=== PATIENT | male | born 1945 | race Caucasian/White ===

== ENCOUNTER → 2020-09-10 | Outpatient (CLI) | payer MEDICARE | LOC: M LABSMTC 13:17 | PROVIDERS: ATTEND Anesthesiology | DX: Z01.812 Encounter for preprocedural laboratory examination (principal); Z20.822 Contact with and (suspected) exposure to COVID-19 ==

== ENCOUNTER 2020-09-15 10:06 | Day surgery (SDC) | payer MEDICARE ==
[~2020-09-15] VITALS: Ht 177.8 cm; Wt 87.9 kg
[~2020-09-15 10:06] MED LIST: LR 1,000 ML IV ONE
[2020-09-15] MEDS ORDERED: ROCURONIUM BROMIDE 50 MG/5 ML VIAL As Ordered ONE (11:12)
[2020-09-15] MEDS ORDERED: dexameTHASONE 4 MG/ML 1ML VIAL (J1100 PER 1MG) As Ordered ONE (11:12)
[2020-09-15] MEDS ORDERED: MIDAZOLAM INJ 2MG/2ML VIAL (J2250 PER 1MG) As Ordered ONE (11:12)
[2020-09-15] MEDS ORDERED: LIDOCAINE 2% 100MG/5ML SDV (FOR ANES.) As Ordered ONE (11:12)
[2020-09-15] MEDS ORDERED: propofoL 200 MG/20 ML VIAL As Ordered ONE (11:12)
[2020-09-15] MEDS ORDERED: ONDANSETRON 4MG/2ML VIAL As Ordered ONE (11:12)
[2020-09-15] MEDS ORDERED: fentaNYL 100 MCG/2 ML INJECTION (J3010) As Ordered ONE (11:13)
[2020-09-15] MEDS ORDERED: ACETAMINOPHEN 1000MG 100ML IV BTL (OFIRMEV) (J0131 PER 10MG) As Ordered ONE (11:14)
[2020-09-15] MEDS ORDERED: METHYLENE BLUE 0.5% (5MG/ML) 10 ML AMP (PROVAYBLUE) As Ordered ONE (11:49)
[2020-09-15] MEDS ORDERED: EPINEPHrine 1MG/ML INJ 30ML MD-VIAL As Ordered ONE (11:49)
[2020-09-15] MEDS ORDERED: LIDOCAINE W/EPINEPHRINE 1% 20ML VIAL As Ordered ONE (11:49)
[2020-09-15] MEDS ORDERED: BACITRACIN OINTMENT 30GM TUBE As Ordered ONE (11:49)
[2020-09-15] MEDS ORDERED: SUGAMMADEX SODIUM 500 MG/5 ML VIAL (BRIDION) As Ordered ONE (12:31)
[2020-09-15] MEDS ORDERED: ONDANSETRON 4MG/2ML VIAL IV PRN (14:15)
[2020-09-15] MEDS ORDERED: LR 1,000 ML IV SCH ×2 (14:15→14:20)
[2020-09-15] MEDS ORDERED: fentaNYL 100 MCG/2 ML INJECTION (J3010) IV PRN (14:15)
[2020-09-15] MEDS: oxyCODONE 5MG TAB PO PRN ×2 (14:20→14:56)
[2020-09-15] MEDS ORDERED: ACETAMINOPH W/CODEINE #3 TAB UD PO PRN (14:20)
--- NOTE | 2020-09-15 14:43 | RO ---
OPERATIVE NOTE DATE OF OPERATION: 09/15/2020 PREOPERATIVE DIAGNOSIS: Cancer of the lower lip. POSTOPERATIVE DIAGNOSIS: Cancer of the lower lip. OPERATIVE PROCEDURE: Excision of cancer of lower lip with flap reconstruction. SURGEON: Kenrick Grider MD AUCTIONEER ART: Tod Nguyen PA-C ANESTHESIA: General. 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 It measured 2 cm wide. I measured the lower lip distance, which was 9 cm. After excision, it was 3 cm of defect, so, I did a rotational 2-stage flap. This is the first stage. PROCEDURE IN DETAIL: Under general anesthesia, with the patient intubated, the patient was draped in the usual manner. The tumor was marked out and the margins. I infiltrated with lidocaine and epinephrine. I divided skin and subcutaneous tissues. I cauterized the labial vessels and then removed the specimen. I marked it. I sent it for frozen section. Frozen section margins were negative for tumor. Once this was done, then I designed an upper Idris flap based laterally. The flap diameter was 1.5 cm. I made it 2 cm long. This matched the excision margin. So, I divided around the flap leaving the upper lip vessels laterally intact. I then rotated the flap into position. I started first by suturing the mucosa edges together, both on the upper and lower lip. Then, I sutured the muscular layer together of the flap to the lower lip and the upper lip to itself. This was done using interrupted 4-0 Vicryl and 3-0 chromic. Once this was done, then I identified the vermilion border superiorly and then sutured the vermilion border margins together and the incision was closed. I did a similar matching of the vermilion border on the lower lip and then sutured the skin together from superior to inferior. Once that was done, then I started by suturing the mucosa of the medial border of the flap to the lower lip. Next, I sutured the muscular layer of the lower lip together. I identified the vermilion border of the medial part of the lower lip and the vermilion border of the flap and I sutured those together. I closed the skin of the lower lip. Once this was done, everything looked good. I did put a suture in the mucosa superiorly. There was no bleeding then. There was approximately 30 mL of estimated blood loss. The patient tolerated the procedure well. I put Bacitracin ointment on the wound. The patient was then woken up, extubated, and transferred to the recovery room in excellent condition. This was the first stage of a 2-stage rotational flap. ADDENDUM: [employer] during the procedure was Tod Nguyen who helped by retraction and assisting in the dissection. Addendum dictated: JAMZÍN 09/15/2020 1353 Addendum transcribed: [email or web address] 09/15/2020 1425 [email or web address]
[2020-09-15 15:37] VITALS: BP 160/80
== END 2020-09-15 15:38 | disposition home or self-care (01) ==
LOC: M SDC 10:06
PROVIDERS: ATTEND Otolaryngology
DX: C44.02 Squamous cell carcinoma of skin of lip (principal); D18.01 Hemangioma of skin and subcutaneous tissue; F17.218 Nicotine dependence, cigarettes, with other nicotine-induced disorders
CPT/HCPCS: 11642; 40527; 88305; 88331; 88332; J0131; J1100; J2250; J2405; J3010; Q9968

== ENCOUNTER → 2020-09-28 | Outpatient (CLI) | payer MEDICARE ==
--- NOTE | 2020-09-28 12:08 | REP ---
INDICATION: NICOTINE DEPEND. COMPARISON: None. TECHNIQUE: Axial noncontrast images from the thoracic inlet to the upper abdomen using low-dose lung screening technique (LDCT). As per the protocol only lung window images were sent to the read station for interpretation FINDINGS: In the apicoposterior segment of the left upper lobe there is a vague 7 mm sized ground-glass nodule. There is mild cylindrical bronchiectasis. Grossly the mediastinum and pulmonary lou are within normal limits. Grossly, the imaged upper abdomen and imaged osseous structures are within normal limits. IMPRESSION: 7 millimeters sized ground-glass nodule in the left lung as described above. According to the revised Fleischner society criteria this represents a lung rads category 2 lesion for which a [address] follow-up is recommended. <Electronically signed by Reinaldo Lal > 09/28/20 [id number]
== END ==
LOC: M RAD 10:38
PROVIDERS: ATTEND Family Medicine
DX: F17.210 Nicotine dependence, cigarettes, uncomplicated (principal); Z12.2 Encounter for screening for malignant neoplasm of respiratory organs

== ENCOUNTER → 2020-10-02 | Outpatient (CLI) | payer MEDICARE | LOC: M LABSMTC 10:40 | PROVIDERS: ATTEND Anesthesiology | DX: Z20.828 Contact with and (suspected) exposure to other viral communicable diseases (principal); Z11.59 Encounter for screening for other viral diseases ==

== ENCOUNTER 2020-10-07 08:11 | Day surgery (SDC) | payer MEDICARE ==
[~2020-10-07] VITALS: Ht 177.8 cm; Wt 86.4 kg
[2020-10-07] MEDS ORDERED: MIDAZOLAM INJ 2MG/2ML VIAL (J2250 PER 1MG) As Ordered ONE (09:14)
[2020-10-07] MEDS ORDERED: fentaNYL 100 MCG/2 ML INJECTION (J3010) As Ordered ONE (09:14)
[2020-10-07] MEDS ORDERED: LIDOCAINE 2% JELLY 5ML TUBE As Ordered ONE (09:14)
[2020-10-07] MEDS ORDERED: ONDANSETRON 4MG/2ML VIAL As Ordered ONE (09:14)
[2020-10-07] MEDS ORDERED: SUGAMMADEX SODIUM 500 MG/5 ML VIAL (BRIDION) As Ordered ONE (09:14)
[2020-10-07] MEDS ORDERED: ROCURONIUM BROMIDE 50 MG/5 ML VIAL As Ordered ONE (09:14)
[2020-10-07] MEDS ORDERED: propofoL 200 MG/20 ML VIAL As Ordered ONE ×2 (09:14→09:33)
[2020-10-07] MEDS ORDERED: dexameTHASONE 4 MG/ML 1ML VIAL (J1100 PER 1MG) As Ordered ONE (09:14)
[2020-10-07] MEDS ORDERED: KETOROLAC 60MG 2ML VIAL As Ordered ONE (09:14)
[2020-10-07] MEDS ORDERED: LIDOCAINE 2% 100MG/5ML SDV (FOR ANES.) As Ordered ONE (09:20)
[2020-10-07] MEDS ORDERED: OXYMETAZOLINE 0.05% NASAL SPRAY (AFRIN) As Ordered ONE (09:27)
[2020-10-07] MEDS ORDERED: EPINEPHrine 1MG/ML INJ 30ML MD-VIAL As Ordered ONE (09:37)
[2020-10-07] MEDS ORDERED: METHYLENE BLUE 0.5% (5MG/ML) 10 ML AMP (PROVAYBLUE) As Ordered ONE (09:37)
[2020-10-07] MEDS ORDERED: BACITRACIN OINTMENT 30GM TUBE As Ordered ONE (09:37)
[2020-10-07] MEDS ORDERED: LIDOCAINE W/EPINEPHRINE 1% 20ML VIAL As Ordered ONE (09:37)
[2020-10-07] MEDS ORDERED: fentaNYL 100 MCG/2 ML INJECTION (J3010) IV PRN (11:05)
[2020-10-07] MEDS ORDERED: LR 1,000 ML IV SCH (11:05)
[2020-10-07] MEDS ORDERED: ONDANSETRON 4MG/2ML VIAL IV PRN (11:05)
[2020-10-07] MEDS ORDERED: METOCLOPRAMIDE INJ 10MG/2ML VIAL (J2765 PER 1) IV PRN (11:05)
[2020-10-07] MEDS ORDERED: oxyCODONE 5MG TAB PO PRN (11:05)
[2020-10-07 11:25] VITALS: BP 142/66
--- NOTE | 2020-10-07 12:56 | RO ---
OPERATIVE NOTE DATE OF OPERATION: 10/07/2020 PREOPERATIVE DIAGNOSIS: Lip cancer. POSTOPERATIVE DIAGNOSIS: Lip cancer. OPERATIVE PROCEDURE: Second-stage reconstruction for lip cancer resection. SURGEON: Kenrick Grider M.D. SOCIAL MEDIA DESIGNER: None. ANESTHESIA: Local. DESCRIPTION OF PROCEDURE: Under local anesthesia with sedation, the patient was draped in the usual manner. I infiltrated the area with Lidocaine with epinephrine. I divided the flap. Then, I did some wedge excisions of healing tissue and then sutured the lower lip in two Layers laterally; first with skin, then mucosa, and then the upper lip mucosa. The patient tolerated the procedure well. No blood loss. The patient was transferred to the recovery room in excellent condition.
== END 2020-10-07 11:41 | disposition home or self-care (01) ==
LOC: M SDC 08:11
PROVIDERS: ATTEND Otolaryngology
DX: C00.9 Malignant neoplasm of lip, unspecified (principal)
CPT/HCPCS: 40510; J2250; J3010; Q9968

== ENCOUNTER → 2021-10-17 | Outpatient (CLI) | payer MEDICARE | LOC: M RAD 09:09 | PROVIDERS: ATTEND Family Medicine | DX: F17.210 Nicotine dependence, cigarettes, uncomplicated (principal) ==

== ENCOUNTER → 2022-11-15 | Outpatient (CLI) | payer MEDICARE | LOC: M RAD 13:19 | PROVIDERS: ATTEND Family Medicine | DX: Z12.2 Encounter for screening for malignant neoplasm of respiratory organs (principal); F17.210 Nicotine dependence, cigarettes, uncomplicated ==